=== PATIENT | male | born 1980 | race Caucasian/White ===

== ENCOUNTER 2017-04-18 17:01 | Emergency (ER) | payer SELFPAY ==
--- NOTE | 2017-04-18 17:08 | PDOC ---
History of Present Illness - General History Source: Patient (Pulled into pole by dog 1 week ago. ) Exam Limitations: No Limitations <Fred Shelton - Last Filed: 04/18/17 19:09> <Jean-Pierre Montalvo - Last Filed: 04/18/17 19:14> - General Chief Complaint: Injury Stated Complaint: RIGHT POSTERIOR RIB PAIN Time Seen by Provider: 04/18/17 17:07 Past History <Fred Shelton - Last Filed: 04/18/17 19:09> - Immunization History Td Vaccination: No - Suicide/Smoking/Psychosocial Hx Smoking Status: Yes Smoking History: Current every day smoker Number of Cigarettes Smoked Daily: 40 <Jean-Pierre Montalvo - Last Filed: 04/18/17 19:14> - Past Medical History Allergies/Adverse Reactions: Allergies Allergy/AdvReac Type Severity Reaction Status Date / Time No Known Allergies Allergy Verified 04/18/17 17:05 Home Medications: Ambulatory Orders No Home Medications 0 dose .ROUTE UTDICT 03/29/12 Review of Systems - Review of Systems Musculoskeletal: Yes: Muscle Pain (Right mid flank pain. ) All Other Systems: Reviewed and Negative <rFed Shelton - Last Filed: 04/18/17 19:09> *Physical Exam - Vital Signs Last Vital Signs Temp Pulse Resp BP Pulse Ox 98.5 F 72 16 104/67 99 04/18/17 17:03 04/18/17 17:03 04/18/17 17:03 04/18/17 17:03 04/18/17 17:03 - Physical Exam Respiratory/Chest: positive: Other (Right side Rib fracture on the 7th Rib. ) Musculoskeletal: positive: Other (Pain with palpation in upper right rib area going into armpit. Denies need for any pain medication. ) <Fred Shelton - Last Filed: 04/18/17 19:09> *DC/Admit/Observation/Transfer - Attestations Scribe Attestion: 04/18/17 18:33 Documentation prepared by rFed Shelton, acting as medical insurance claims specialist for Jean-Pierre Montalvo MD/DO. <Fred Shelton - Last Filed: 04/18/17 19:09> <Jean-Pierre Montalvo - Last Filed: 04/18/17 19:14> Diagnosis at time of Disposition: Contusion, chest wall Qualifiers: Encounter type: initial encounter Laterality: right Qualified Code(s): S20.211A - Contusion of right front wall of thorax, initial encounter; S20.211A - Contusion of right front wall of thorax, initial encounter - Discharge Dispostion Disposition: HOME Condition at time of disposition: Good - Patient Instructions Printed Discharge Instructions: DI for Rib Contusion
[2017-04-18 17:15] VITALS: PULSE 72; TEMP 98.5; BMI 22.3
[2017-04-18 18:09] VITALS: BP 104/67
== END 2017-04-18 19:17 | disposition home or self-care (01) ==
LOC: FER 17:01
DX: S20.211A Contusion of right front wall of thorax, initial encounter (principal); X58.XXXA Exposure to other specified factors, initial encounter; Y93.89 Activity, other specified; Y92.9 Unspecified place or not applicable; F17.210 Nicotine dependence, cigarettes, uncomplicated
CPT/HCPCS: 71020-TC; 71101-TC-RT; 99281-25

== ENCOUNTER 2017-12-05 08:54 | Inpatient (IN) | payer SELFPAY ==
--- NOTE | 2017-12-05 13:10 | HP ---
CIWA Score - CIWA Score Nausea/Vomitin-Mild Nausea/No Vomiting Muscle Tremors: 4-Moderate,w/Arms Extend Anxiety: 4-Mod. Anxious/Guarded Agitation: 4-Moderately Restless Paroxysmal Sweats: 1-Minimal Palms Moist Orientation: 0-Oriented Tacttile Disturbances: 1-Very Mild Itch/Numbness Auditory Disturbances: 0-None Visual Disturbances: 0-None Headache: 0-None Present CIWA-Ar Total Score: 15 Admission ROS BHS - HPI Chief Complaint: alcohol withdrawal sx Allergies/Adverse Reactions: Allergies Allergy/AdvReac Type Severity Reaction Status Date / Time No Known Allergies Allergy Verified 12/05/17 10:54 History of Present Illness: 37 years old male with long history of alcohol nicotine cocaine marijuana dependence denies medical issue has depression is admitted to detox Exam Limitations: No Limitations - Ebola screening Have you traveled outside of the country in the last 21 days: No (N) Have you had contact with anyone from an Ebola affected area: No Have you been sick,other than usual withdrawal symptoms: No Do you have a fever: No - Review of Systems Constitutional: Chills, Loss of Appetite, Unintentional Wgt. Loss, Unexplained wgt Loss EENT: reports: No Symptoms Reported Respiratory: reports: No Symptoms reported Cardiac: reports: No Symptoms Reported GI: reports: Nausea, Poor Appetite, Poor Fluid Intake, Indigestion, Abdominal cramping : reports: No Symptoms Reported Musculoskeletal: reports: No Symptoms Reported Integumentary: reports: No Symptoms Reported Neuro: reports: Tremors Endocrine: reports: No Symptoms Reported Hematology: reports: No Symptoms Reported Psychiatric: reports: Judgement Intact, Orientated x3, Anxious, Depressed Other Systems: Reviewed and Negative Patient History - Patient Medical History Hx Anemia: No Hx Asthma: No Hx Chronic Obstructive Pulmonary Disease (COPD): No Hx Cancer: No Hx Cardiac Disorders: Yes (heart murmur) Hx Congestive Heart Failure: No Hx Hypertension: No Hx Hypercholesterolemia: No Hx Pacemaker: No HX Cerebrovascular Accident: No Hx Seizures: No Hx Dementia: No Hx Diabetes: No Hx Gastrointestinal Disorders: No Hx Liver Disease: No Hx Genitourinary Disorders: No Hx Sexually Transmitted Disorders: No Hx Renal Disease (ESRD): No Hx Thyroid Disease: No Hx Human Immunodeficiency Virus (HIV): No Hx Hepatitis C: No Hx Depression: Yes Hx Suicide Attempt: No Hx Bipolar Disorder: No Hx Schizophrenia: No - Patient Surgical History Past Surgical History: No - PPD History Previous Implant?: Yes Documented Results: Negative w/o proof Implanted On Prior [facility] Admission?: No PPD to be Administered?: Yes - Smoking Cessation Smoking history: Current every day smoker Have you smoked in the past 12 months: Yes Aproximately how many cigarettes per day: 40 Cigars Per Day: 0 Hx Chewing Tobacco Use: No Initiated information on smoking cessation: Yes 'Breaking Loose' booklet given: 12/05/17 - Substance & Tx. History Hx Alcohol Use: Yes Hx Substance Use: Yes Substance Use Type: Alcohol, Cocaine, Marijuana Hx Substance Use Treatment: No (1st detox) - Substances Abused Alcohol Route: Oral Frequency: Daily Amount used: 10 22 oz beers Age of first use: 16 Date of Last Use: 12/05/17 Cocaine Route: Inhalation Frequency: 3-6 times per week Amount used: $200-300 Age of first use: 24 Date of Last Use: 12/04/17 Marijuana/Hashish Route: Smoking Frequency: Daily Amount used: 2 blunts Age of first use: 16 Date of Last Use: 12/04/17 Family Disease History - Family Disease History Family Disease History: Heart Disease: Father (), [place]: Mother, Other: Father Admission Physical Exam S - Vital Signs Vital Signs: Vital Signs - 24 hr 12/05/17 10:03 Temperature 98 F Pulse Rate 89 Respiratory 20 Rate Blood Pressure 128/71 - Physical General Appearance: Yes: Appropriately Dressed, Mild Distress, Alcohol on Breath , Thin, Tremorous, Irritable, Sweating, Anxious HEENTM: Yes: Hearing grossly Normal, Normocephalic, Normal Voice Respiratory: Yes: Chest Non-Tender, Lungs Clear, Normal Breath Sounds, No Respiratory Distress, No Accessory Muscle Use Neck: Yes: Supple, Trachea in good position Breast: Yes: Breasts Symetrical, No Discharge Cardiology: Yes: Regular Rhythm, Regular Rate, S1, S2, Systolic Murmur Abdominal: Yes: Non Tender, Flat, Increased Bowel Sounds Genitourinary: Yes: Within Normal Limits Back: Yes: Normal Inspection Musculoskeletal: Yes: full range of Motion, Gait Steady Extremities: Yes: Normal Inspection, Normal Range of Motion, Non-Tender, Tremors Neurological: Yes: Fully Oriented, Alert, Motor Strength 5/5, Normal Response, Depressed Affect Integumentary: Yes: Warm Lymphatic: Yes: Within Normal Limits - Diagnostic (1) Alcohol dependence with uncomplicated withdrawal Current Visit: Yes Status: Acute (2) Weight loss Current Visit: Yes Status: Acute (3) Nicotine dependence Current Visit: Yes Status: Acute Qualifiers: Nicotine product type: cigarettes Substance use status: in withdrawal Qualified Code(s): F17.213 - Nicotine dependence, cigarettes, with withdrawal (4) GERD (gastroesophageal reflux disease) Current Visit: Yes Status: Chronic Qualifiers: Esophagitis presence: without esophagitis Qualified Code(s): K21.9 - Gastro -esophageal reflux disease without esophagitis (5) Benign heart murmur Current Visit: Yes Status: Chronic (6) Depression (emotion) Current Visit: Yes Status: Suspected Qualifiers: Depression Type: dysthymia Qualified Code(s): F34.1 - Dysthymic disorder Cleared for Admission [facility] - Detox or Rehab [facility] Level of Care: Medically Managed Detox Regimen/Protocol: Librium S Breath Alcohol Content Breath Alcohol Content: 0.127 Urine Drug Screen - Results Drug Screen Negative: No Urine Drug Screen Results: THC-Marijuana, HERVE-Cocaine
[2017-12-05] MEDS ORDERED: LOPERAMIDE HCL 2 MG CAPSULE PO PRN (13:14)
[2017-12-05] MEDS ORDERED: MAGNESIUM CITRATE 300 ML BOTTLE PO PRN (13:14)
[2017-12-05] MEDS ORDERED: MAGNESIUM HYDROX 2400MG/30ML ORAL SUSPENSION 30 ML CUP PO PRN (13:14)
[2017-12-05] MEDS ORDERED: ACETAMINOPHEN 325 MG TABLET (FP) PO PRN (13:14)
[2017-12-05] MEDS ORDERED: hydrOXYzine PAMOATE 50 MG CAPSULE (FP) PO PRN (13:14)
[2017-12-05] MEDS ORDERED: MAG HYDROX/AL HYDROX/SIMETH 30 ML UNIT-DOSE CUP PO PRN (13:14)
[2017-12-05] MEDS ORDERED: MENTHOL/PHENOL 1 EACH UD MM PRN (13:14)
[2017-12-05] MEDS ORDERED: chlordiazePOXIDE HCL 25 MG CAPSULE PO PRN (13:14)
[2017-12-05] MEDS ORDERED: guaiFENesin/D-METHORPHAN HB 10 ML UNIT-DOSE CUPS PO PRN (13:14)
[2017-12-05] MEDS ORDERED: P-EPHED 60MG/TRIPROLIDI 2.5MG TABLET PO PRN (13:14)
[2017-12-05] MEDS ORDERED: chlordiazePOXIDE HCL 25 MG CAPSULE PO ONE (14:40)
[2017-12-05] MEDS: RANITIDINE HCL 150 MG TABLET (FP) PO SCH ×2 (15:57→22:09)
[2017-12-05] MEDS: NICOTINE 21 MG/24 HOURS TOPICAL PATCH TD SCH (16:01)
--- NOTE | 2017-12-05 17:21 | CONSULT ---
[facility] Psychiatric Consult - Data Date of interview: 12/05/17 Admission source: [facility] Identifying data: Patient is a 37 year old male, but , father of two, and currently residing with his parents. This is patient's first admission to [facility] detox. Pt. admitted to for alcohol, cannabis, cocaine dependence. Substance Abuse History: Following information confirmed with Mr. Agrawal: Smoking Cessation. Smoking history: Current every day smoker. Have you smoked in the past 12 months: Yes. Aproximately how many cigarettes per day: 40. Cigars Per Day: 0. Hx Chewing Tobacco Use: No. Initiated information on smoking cessation: Yes. 'Breaking Loose' booklet given: 12/05/17. - Substance & Tx. History. Hx Alcohol Use: Yes. Hx Substance Use: Yes. Substance Use Type : Alcohol, Cocaine, Marijuana. Hx Substance Use Treatment: No (1st detox). - Substances Abused. Alcohol. Route: Oral. Frequency: Daily. Amount used: 10 22 oz beers. Age of first use: 16. Date of Last Use: 12/05/17. Cocaine. Route: Inhalation. Frequency: 3-6 times per week. Amount used: $200- 300. Age of first use: 24. Date of Last Use: 12/04/17. Marijuana/Hashish. Route: Smoking. Frequency: Daily. Amount used: 2 blunts. Age of first use: 16. Date of Last Use: 12/04/17 Medical History: Heart murmur Psychiatric History: Patient denies h/o psychiatric hospitalizations, outpatient care, and suicide attempt. Physical/Sexual Abuse/Trauma History: Denies. Mental Status Exam - Mental Status Exam Alert and Oriented to: Time, Place, Person Cognitive Function: Good Patient Appearance: Well Groomed Mood: Hopeful Affect: Mood Congruent Patient Behavior: Appropriate, Cooperative Speech Pattern: Clear, Appropriate Voice Loudness: Normal Thought Process: Intact, Goal Oriented Thought Disorder: Not Present Hallucinations: Denies Suicidal Ideation: Denies Homicidal Ideation: Denies Insight/Judgement: Poor Sleep: Fair Appetite: Fair Muscle strength/Tone: Normal Gait/Station: Normal Psychiatric Findings - Problem List (Pala 1, 2,3) (1) Cocaine dependence Current Visit: Yes Status: Acute (2) Cannabis dependence Current Visit: Yes Status: Acute (3) Alcohol dependence with uncomplicated withdrawal Current Visit: Yes Status: Acute (4) Nicotine dependence Current Visit: Yes Status: Acute Qualifiers: Nicotine product type: cigarettes Substance use status: in withdrawal Qualified Code(s): F17.213 - Nicotine dependence, cigarettes, with withdrawal (5) Substance induced mood disorder Current Visit: Yes Status: Suspected - Initial Treatment Plan Initial Treatment Plan: Psychoeducation provided. Detoxification in progress. Observation.
--- NOTE | 2017-12-05 17:32 | EKG ---
Test Reason : Blood Pressure : / mmHG Vent. Rate : 078 BPM Atrial Rate : 078 BPM P-R Int : 146 ms QRS Dur : 092 ms QT Int : 386 ms P-R-T Axes : 078 069 063 degrees QTc Int : 440 ms NORMAL SINUS RHYTHM VOLTAGE CRITERIA FOR LEFT VENTRICULAR HYPERTROPHY ABNORMAL ECG NO PREVIOUS ECGS AVAILABLE Confirmed by MD Meng Edward ([id number]) on 12/05/2017 5:31:50 PM Referred By: Confirmed By:Jean Meng MD
[2017-12-05 20:25] LABS: URINE APPEARANCE CLEAR; URINE BILIRUBIN NEGATIVE (<2.0 mg/dL); URINE COLOR LTYELLOW; URINE GLUCOSE (UA) NEGATIVE (NEGATIVE); URINE KETONE NEGATIVE (NEGATIVE); URINE LEUK ESTERASE NEGATIVE (NEGATIVE); URINE NITRITE NEGATIVE (NEGATIVE); URINE PROTEIN NEGATIVE (NEGATIVE); URINE UROBILINOGEN NEGATIVE mg/dL (0.2-1.0)
[2017-12-05] MEDS: THIAMINE HCL 100 MG TABLET (FP) PO SCH (22:09)
[2017-12-05] MEDS: chlordiazePOXIDE HCL 25 MG CAPSULE PO SCH (22:10)
[2017-12-05] MEDS: MELATONIN 5 MG TABLETS PO PRN (22:11)
[2017-12-06] MEDS: chlordiazePOXIDE HCL 25 MG CAPSULE PO SCH ×4 (07:29→22:18)
[2017-12-06] MEDS: RANITIDINE HCL 150 MG TABLET (FP) PO SCH ×2 (10:34→22:18)
[2017-12-06] MEDS: NICOTINE POLACRILEX 4 MG GUM BUC PRN ×3 (10:34→22:19)
[2017-12-06] MEDS: PRENATAL VITAMINS W/ FOLIC ACID TABLET (FP) PO SCH (10:34)
[2017-12-06] MEDS: NICOTINE 21 MG/24 HOURS TOPICAL PATCH TD SCH (10:34)
[2017-12-06 10:50] LABS: CHLORIDE 107 mmol/L (98-107); POTASSIUM 3.8 mmol/L (3.5-5.1); SODIUM 140 mmol/L (136-145)
[2017-12-06 10:53] LABS: HEMATOCRIT 46.5 % (35.4-49); HEMOGLOBIN 16.1 GM/dL (11.7-16.9); MCH 31.6 pg (25.7-33.7); MCHC 34.6 g/dl (32.0-35.9); MEAN CELL VOLUME 91.4 fl (80-96); MEAN PLT VOLUME 8.1 fl (7.5-11.1); PLATELET COUNT 210 K/MM3 (134-434); RBC 5.09 M/mm3 (4.00-5.60); RDW 13.7 % (11.9-15.9); WHITE BLOOD COUNT 10.9 K/mm3 (4.0-10.0)
--- NOTE | 2017-12-06 12:18 | PN ---
S CIWA - CIWA Score Nausea/Vomitin-Mild Nausea/No Vomiting Muscle Tremors: 4-Moderate,w/Arms Extend Anxiety: 3 Agitation: 4-Moderately Restless Paroxysmal Sweats: 1-Minimal Palms Moist Orientation: 0-Oriented Tacttile Disturbances: 0-None Auditory Disturbances: 0-None Visual Disturbances: 0-None Headache: 1-Very Mild CIWA-Ar Total Score: 14 BHS Progress Note (SOAP) Subjective: mild headache sweat tremor anxiety irritable Objective: 12/06/17 12:17 Vital Signs Temperature 97.7 F 12/06/17 09:58 Pulse Rate 66 12/06/17 09:58 Respiratory Rate 20 12/06/17 09:58 Blood Pressure 110/60 12/06/17 09:58 O2 Sat by Pulse Oximetry (%) Laboratory Last Values WBC 10.9 K/mm3 (4.0-10.0) H 12/06/17 05:55 RBC 5.09 M/mm3 (4.00-5.60) 12/06/17 05:55 Hgb 16.1 GM/dL (11.7-16.9) 12/06/17 05:55 Hct 46.5 % (35.4-49) 12/06/17 05:55 MCV 91.4 fl (80-96) 12/06/17 05:55 MCH 31.6 pg (25.7-33.7) 12/06/17 05:55 MCHC 34.6 g/dl (32.0-35.9) 12/06/17 05:55 RDW 13.7 % (11.9-15.9) 12/06/17 05:55 Plt Count 210 K/MM3 (134-434) 12/06/17 05:55 MPV 8.1 fl (7.5-11.1) 12/06/17 05:55 Sodium 140 mmol/L (136-145) 12/06/17 05:55 Potassium 3.8 mmol/L (3.5-5.1) 12/06/17 05:55 Chloride 107 mmol/L (98-107) 12/06/17 05:55 Urine Color Ltyellow 12/05/17 15:00 Urine Appearance Clear 12/05/17 15:00 Urine pH 5.0 (5.0-8.0) 12/05/17 15:00 Ur Specific [place] 1.006 (1.001-1.035) 12/05/17 15:00 Urine Protein Negative (NEGATIVE) 12/05/17 15:00 Urine Glucose (UA) Negative (NEGATIVE) 12/05/17 15:00 Urine Ketones Negative (NEGATIVE) 12/05/17 15:00 Urine Blood Negative (NEGATIVE) 12/05/17 15:00 Urine Nitrite Negative (NEGATIVE) 12/05/17 15:00 Urine Bilirubin Negative (<2.0 mg/dL) 12/05/17 15:00 Urine Urobilinogen Negative mg/dL (0.2-1.0) 12/05/17 15:00 Ur Leukocyte Esterase Negative (NEGATIVE) 12/05/17 15:00 lab noted Assessment: 12/06/17 12:18 withdrawal sx Plan: continue detox
[2017-12-06 12:26] LABS: ALBUMIN 4.5 g/dl (3.4-5.0); ALK PHOS 67 U/L (45-117); ANION GAP 9 (8-16); BILIRUBIN,TOTAL 0.4 mg/dL (0.2-1.0); BLOOD UREA NITROGEN 11 mg/dL (7-18); CALCIUM 8.8 mg/dL (8.5-10.1); CO2 24 mmol/L (21-32); GLUCOSE,RANDOM 75 mg/dL (74-106); SGOT/AST 17 U/L (15-37); TOT PROT 7.7 g/dl (6.4-8.2)
[2017-12-06 13:30] LABS: SGPT/ALT 22 U/L (12-78)
[2017-12-06] MEDS: MELATONIN 5 MG TABLETS PO PRN (22:18)
[2017-12-06] MEDS: THIAMINE HCL 100 MG TABLET (FP) PO SCH (22:18)
[2017-12-07] MEDS: chlordiazePOXIDE HCL 25 MG CAPSULE PO SCH ×3 (06:47→18:12)
[2017-12-07] MEDS: NICOTINE POLACRILEX 4 MG GUM BUC PRN ×5 (06:49→22:33)
[2017-12-07] MEDS: RANITIDINE HCL 150 MG TABLET (FP) PO SCH ×2 (10:26→22:45)
[2017-12-07] MEDS: NICOTINE 21 MG/24 HOURS TOPICAL PATCH TD SCH (10:26)
[2017-12-07] MEDS: PRENATAL VITAMINS W/ FOLIC ACID TABLET (FP) PO SCH (10:26)
--- NOTE | 2017-12-07 11:34 | PN ---
S CIWA - CIWA Score Nausea/Vomitin-Mild Nausea/No Vomiting Muscle Tremors: 4-Moderate,w/Arms Extend Anxiety: 3 Agitation: 3 Paroxysmal Sweats: 1-Minimal Palms Moist Orientation: 0-Oriented Tacttile Disturbances: 0-None Auditory Disturbances: 0-None Visual Disturbances: 0-None Headache: 0-None Present CIWA-Ar Total Score: 12 BHS Progress Note (SOAP) Subjective: sweat tremor trouble sleep at night anxiety Objective: 12/07/17 11:35 Vital Signs Temperature 98 F 12/07/17 10:37 Pulse Rate 61 12/07/17 10:37 Respiratory Rate 20 12/07/17 10:37 Blood Pressure 127/81 12/07/17 10:37 O2 Sat by Pulse Oximetry (%) Laboratory Last Values WBC 10.9 K/mm3 (4.0-10.0) H 12/06/17 05:55 RBC 5.09 M/mm3 (4.00-5.60) 12/06/17 05:55 Hgb 16.1 GM/dL (11.7-16.9) 12/06/17 05:55 Hct 46.5 % (35.4-49) 12/06/17 05:55 MCV 91.4 fl (80-96) 12/06/17 05:55 MCH 31.6 pg (25.7-33.7) 12/06/17 05:55 MCHC 34.6 g/dl (32.0-35.9) 12/06/17 05:55 RDW 13.7 % (11.9-15.9) 12/06/17 05:55 Plt Count 210 K/MM3 (134-434) 12/06/17 05:55 MPV 8.1 fl (7.5-11.1) 12/06/17 05:55 Sodium 140 mmol/L (136-145) 12/06/17 05:55 Potassium 3.8 mmol/L (3.5-5.1) 12/06/17 05:55 Chloride 107 mmol/L (98-107) 12/06/17 05:55 Carbon Dioxide 24 mmol/L (21-32) 12/06/17 05:55 Anion Gap 9 (8-16) 12/06/17 05:55 BUN 11 mg/dL (7-18) 12/06/17 05:55 Creatinine 1.0 mg/dL (0.7-1.3) 12/06/17 05:55 Creat Clearance w eGFR > 60 (>60) 12/06/17 05:55 Random Glucose 75 mg/dL (74-106) 12/06/17 05:55 Calcium 8.8 mg/dL (8.5-10.1) 12/06/17 05:55 Total Bilirubin 0.4 mg/dL (0.2-1.0) 12/06/17 05:55 AST 17 U/L (15-37) 12/06/17 05:55 ALT 22 U/L (12-78) 12/06/17 05:55 Alkaline Phosphatase 67 U/L (45-117) 12/06/17 05:55 Total Protein 7.7 g/dl (6.4-8.2) 12/06/17 05:55 Albumin 4.5 g/dl (3.4-5.0) 12/06/17 05:55 Urine Color Ltyellow 12/05/17 15:00 Urine Appearance Clear 12/05/17 15:00 Urine pH 5.0 (5.0-8.0) 12/05/17 15:00 Ur Specific [place] 1.006 (1.001-1.035) 12/05/17 15:00 Urine Protein Negative (NEGATIVE) 12/05/17 15:00 Urine Glucose (UA) Negative (NEGATIVE) 12/05/17 15:00 Urine Ketones Negative (NEGATIVE) 12/05/17 15:00 Urine Blood Negative (NEGATIVE) 12/05/17 15:00 Urine Nitrite Negative (NEGATIVE) 12/05/17 15:00 Urine Bilirubin Negative (<2.0 mg/dL) 12/05/17 15:00 Urine Urobilinogen Negative mg/dL (0.2-1.0) 12/05/17 15:00 Ur Leukocyte Esterase Negative (NEGATIVE) 12/05/17 15:00 RPR Titer Nonreactive (NONREACTIVE) 12/06/17 05:55 lab noted Assessment: 12/07/17 11:35 withdrawal sx Plan: continue detox
[2017-12-07] MEDS: THIAMINE HCL 100 MG TABLET (FP) PO SCH (22:32)
[2017-12-07] MEDS: MELATONIN 5 MG TABLETS PO PRN (22:32)
[2017-12-07] MEDS: chlordiazePOXIDE 5 MG CAPSULE PO SCH (22:33)
[2017-12-08] MEDS: chlordiazePOXIDE 5 MG CAPSULE PO SCH ×3 (05:23→17:17)
[2017-12-08] MEDS: NICOTINE POLACRILEX 4 MG GUM BUC PRN ×5 (05:25→22:14)
--- NOTE | 2017-12-08 09:09 | PN ---
BHS Progress Note (SOAP) Subjective: feeling better no tremor less sweat tolerated food and fluid well Objective: 12/08/17 09:05 Vital Signs Temperature 97.5 F L 12/08/17 06:30 Pulse Rate 70 12/08/17 06:30 Respiratory Rate 18 12/08/17 06:30 Blood Pressure 111/64 12/08/17 06:30 O2 Sat by Pulse Oximetry (%) Laboratory Last Values WBC 10.9 K/mm3 (4.0-10.0) H 12/06/17 05:55 RBC 5.09 M/mm3 (4.00-5.60) 12/06/17 05:55 Hgb 16.1 GM/dL (11.7-16.9) 12/06/17 05:55 Hct 46.5 % (35.4-49) 12/06/17 05:55 MCV 91.4 fl (80-96) 12/06/17 05:55 MCH 31.6 pg (25.7-33.7) 12/06/17 05:55 MCHC 34.6 g/dl (32.0-35.9) 12/06/17 05:55 RDW 13.7 % (11.9-15.9) 12/06/17 05:55 Plt Count 210 K/MM3 (134-434) 12/06/17 05:55 MPV 8.1 fl (7.5-11.1) 12/06/17 05:55 Sodium 140 mmol/L (136-145) 12/06/17 05:55 Potassium 3.8 mmol/L (3.5-5.1) 12/06/17 05:55 Chloride 107 mmol/L (98-107) 12/06/17 05:55 Carbon Dioxide 24 mmol/L (21-32) 12/06/17 05:55 Anion Gap 9 (8-16) 12/06/17 05:55 BUN 11 mg/dL (7-18) 12/06/17 05:55 Creatinine 1.0 mg/dL (0.7-1.3) 12/06/17 05:55 Creat Clearance w eGFR > 60 (>60) 12/06/17 05:55 Random Glucose 75 mg/dL (74-106) 12/06/17 05:55 Calcium 8.8 mg/dL (8.5-10.1) 05/30/18 05:55 Total Bilirubin 0.4 mg/dL (0.2-1.0) 12/06/17 05:55 AST 17 U/L (15-37) 12/06/17 05:55 ALT 22 U/L (12-78) 12/06/17 05:55 Alkaline Phosphatase 67 U/L (45-117) 12/06/17 05:55 Total Protein 7.7 g/dl (6.4-8.2) 12/06/17 05:55 Albumin 4.5 g/dl (3.4-5.0) 12/06/17 05:55 Urine Color Ltyellow 12/05/17 15:00 Urine Appearance Clear 12/05/17 15:00 Urine pH 5.0 (5.0-8.0) 12/05/17 15:00 Ur Specific [place] 1.006 (1.001-1.035) 12/05/17 15:00 Urine Protein Negative (NEGATIVE) 12/05/17 15:00 Urine Glucose (UA) Negative (NEGATIVE) 12/05/17 15:00 Urine Ketones Negative (NEGATIVE) 12/05/17 15:00 Urine Blood Negative (NEGATIVE) 12/05/17 15:00 Urine Nitrite Negative (NEGATIVE) 12/05/17 15:00 Urine Bilirubin Negative (<2.0 mg/dL) 12/05/17 15:00 Urine Urobilinogen Negative mg/dL (0.2-1.0) 12/05/17 15:00 Ur Leukocyte Esterase Negative (NEGATIVE) 12/05/17 15:00 RPR Titer Nonreactive (NONREACTIVE) 12/06/17 05:55 lab noted Assessment: 12/08/17 09:05 mild withdrawal sx Plan: medically supervised detox discussed aftercare
[2017-12-08] MEDS: RANITIDINE HCL 150 MG TABLET (FP) PO SCH ×2 (10:44→22:21)
[2017-12-08] MEDS: PRENATAL VITAMINS W/ FOLIC ACID TABLET (FP) PO SCH (10:44)
[2017-12-08] MEDS: NICOTINE 21 MG/24 HOURS TOPICAL PATCH TD SCH (10:46)
[2017-12-08] MEDS: MELATONIN 5 MG TABLETS PO PRN (22:14)
[2017-12-08] MEDS: chlordiazePOXIDE HCL 10 MG CAPSULE PO SCH (22:14)
[2017-12-08] MEDS: THIAMINE HCL 100 MG TABLET (FP) PO SCH (22:14)
[2017-12-09] MEDS: chlordiazePOXIDE HCL 10 MG CAPSULE PO SCH (05:11)
[2017-12-09 06:21] VITALS: BP 124/72; PULSE 60; TEMP 96.8
--- NOTE | 2017-12-09 09:20 | DS ---
[facility] Detox Discharge Summary Admission Date: 12/05/17 Discharge Date: 12/18/17 - History Present History: Alcohol Dependence, Cocaine Dependence Additional Comments: Patient currently stable. Patient to follow up with PMD and after care upon d/c. - Physical Exam Results Vital Signs: Vital Signs Temperature 96.8 F L 12/09/17 06:00 Pulse Rate 60 12/09/17 06:00 Respiratory Rate 18 12/09/17 06:00 Blood Pressure 124/72 12/09/17 06:00 O2 Sat by Pulse Oximetry (%) Pertinent Admission Physical Exam Findings: Vital Signs Temperature 96.8 F L 12/09/17 06:00 Pulse Rate 60 12/09/17 06:00 Respiratory Rate 18 12/09/17 06:00 Blood Pressure 124/72 12/09/17 06:00 O2 Sat by Pulse Oximetry (%) Laboratory Last Values WBC 10.9 K/mm3 (4.0-10.0) H 12/06/17 05:55 RBC 5.09 M/mm3 (4.00-5.60) 12/06/17 05:55 Hgb 16.1 GM/dL (11.7-16.9) 12/06/17 05:55 Hct 46.5 % (35.4-49) 12/06/17 05:55 MCV 91.4 fl (80-96) 12/06/17 05:55 MCH 31.6 pg (25.7-33.7) 12/06/17 05:55 MCHC 34.6 g/dl (32.0-35.9) 12/06/17 05:55 RDW 13.7 % (11.9-15.9) 12/06/17 05:55 Plt Count 210 K/MM3 (134-434) 12/06/17 05:55 MPV 8.1 fl (7.5-11.1) 12/06/17 05:55 Sodium 140 mmol/L (136-145) 12/06/17 05:55 Potassium 3.8 mmol/L (3.5-5.1) 12/06/17 05:55 Chloride 107 mmol/L (98-107) 12/06/17 05:55 Carbon Dioxide 24 mmol/L (21-32) 12/06/17 05:55 Anion Gap 9 (8-16) 12/06/17 05:55 BUN 11 mg/dL (7-18) 12/06/17 05:55 Creatinine 1.0 mg/dL (0.7-1.3) 12/06/17 05:55 Creat Clearance w eGFR > 60 (>60) 12/06/17 05:55 Random Glucose 75 mg/dL (74-106) 12/06/17 05:55 Calcium 8.8 mg/dL (8.5-10.1) 12/06/17 05:55 Total Bilirubin 0.4 mg/dL (0.2-1.0) 12/06/17 05:55 AST 17 U/L (15-37) 12/06/17 05:55 ALT 22 U/L (12-78) 12/06/17 05:55 Alkaline Phosphatase 67 U/L (45-117) 12/06/17 05:55 Total Protein 7.7 g/dl (6.4-8.2) 12/06/17 05:55 Albumin 4.5 g/dl (3.4-5.0) 12/06/17 05:55 Urine Color Ltyellow 12/05/17 15:00 Urine Appearance Clear 12/05/17 15:00 Urine pH 5.0 (5.0-8.0) 12/05/17 15:00 Ur Specific [place] 1.006 (1.001-1.035) 12/05/17 15:00 Urine Protein Negative (NEGATIVE) 12/05/17 15:00 Urine Glucose (UA) Negative (NEGATIVE) 12/05/17 15:00 Urine Ketones Negative (NEGATIVE) 12/05/17 15:00 Urine Blood Negative (NEGATIVE) 12/05/17 15:00 Urine Nitrite Negative (NEGATIVE) 12/05/17 15:00 Urine Bilirubin Negative (<2.0 mg/dL) 12/05/17 15:00 Urine Urobilinogen Negative mg/dL (0.2-1.0) 12/05/17 15:00 Ur Leukocyte Esterase Negative (NEGATIVE) 12/05/17 15:00 RPR Titer Nonreactive (NONREACTIVE) 12/06/17 05:55 - Treatment Hospital Course: Detox Protocol Followed, Detoxed Safely, Responded well, Discharged Condition Good Patient has Accepted a Rehab Referral to: follow up with out [facility] - Medication Discharge Medications: Ambulatory Orders No Home Medications 0 dose .ROUTE UTDICT 03/29/12 - Diagnosis (1) Alcohol dependence with uncomplicated withdrawal Current Visit: Yes Status: Acute (2) Cannabis dependence Current Visit: Yes Status: Acute (3) Cocaine dependence Current Visit: Yes Status: Acute (4) Nicotine dependence Current Visit: Yes Status: Acute Qualifiers: Nicotine product type: cigarettes Substance use status: in withdrawal Qualified Code(s): F17.213 - Nicotine dependence, cigarettes, with withdrawal (5) Weight loss Current Visit: Yes Status: Acute (6) Benign heart murmur Current Visit: Yes Status: Chronic (7) GERD (gastroesophageal reflux disease) Current Visit: Yes Status: Chronic Qualifiers: Esophagitis presence: without esophagitis Qualified Code(s): K21.9 - Gastro -esophageal reflux disease without esophagitis - AMA Did Patient Leave Against Medical Advice: No
== END 2017-12-09 09:27 | disposition home or self-care (01) | DRG 774 ==
LOC: YASAS 08:54 → Y6N 14:17
PROVIDERS: ADMIT Surgery; ATTEND Surgery
PROC: HZ2ZZZZ Detoxification Services for Substance Abuse Treatment (ICD-10-PCS; principal; 2017-12-05)
DX: F10.230 Alcohol dependence with withdrawal, uncomplicated (principal); F14.20 Cocaine dependence, uncomplicated; F12.20 Cannabis dependence, uncomplicated; F17.213 Nicotine dependence, cigarettes, with withdrawal; F34.1 Dysthymic disorder; K21.9 Gastro-esophageal reflux disease without esophagitis; R01.0 Benign and innocent cardiac murmurs; R63.4 Abnormal weight loss; Z68.20 Body mass index [BMI] 20.0-20.9, adult
CPT/HCPCS: 36415; 80053; 81003; 85027; 86593; 93005; 93010